=== PATIENT | male | born 1985 | race Caucasian/White ===

== ENCOUNTER 2025-07-23 05:45 | Day surgery (SDC) | payer SELFPAY, OTHER ==
--- NOTE | 2025-07-02 10:19 | HP.PCM_ITS ---
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 He reports has been there for several years. He is easily able to reduce it. He denies nausea or vomiting or fevers or chills or abdominal pain. ROS General General: No weight change, appetite, fatigue, colon cancer, breast cancer or weakness HEENT HEENT: No difficulty swallowing, eye injury, eye surgery, swollen glands or hoarseness Endo Endocrine: No thyroid disease, diabetes mellitus, thyroid cancer, Hair loss, heat intolerance or cold intolerance Skin Skin: No rash or changing moles Breast Breast: No left breast lump, right breast lump, nipple discharge, breast pain, abnormal mammogram, abnormal US or breast enlargement Musc Musculoskeletal: No back problems, arthritis, rheumatoid arthritis, gout or joint pain Cardio Cardiovascular: No murmur, pacemaker, heart disease, atrial fibrillation, high blood pressure, heart attack, heart stent, palpitations, shortness of breath with exertion or chest pain Psych Psychiatric: No depression, anxiety or hearing voices Resp Respiratory: No shortness of breath, No sleep apnea, No cough, No COPD, No asthma, No emphysema and No wheezing Gastro Gastrointestinal: No abdominal pain, No nausea or vomiting, No diarrhea, No constipation, No blood in stool, No acid reflux, No hemorrhoids, No ulcers, No gallbladder problem and No black,tarry stools Nickolas Hematologic: No blood thinners, No blood disorders, No bleeding, No anemia and No blood clots Neuro Neurologic: No system reviewed and no additional complaints, except as documented, No as per HPI, No abnormal gait, No abnormal hearing, No abnormal mo vements, No abnormal speech, No behavioral changes, No burning sensations, No confusion, No convulsions, No disequilibrium, No dizziness, No localized weakness, No frequent falls, No headache(s), No lack of coordination, No loss of vision, No memory loss, No numbness, No other visual disturbances, No radicular pain, No restless legs, No sensory deficit, No syncope, No tingling, No tremor(s), No weakness and No other Exam Const General: cooperative Orientation: alert and oriented x3 HENMT Head: normal to inspection Neck Neck: normal visual inspection and full ROM Chest Chest palpation & inspection: normal inspection of the chest Resp Effort & Inspection: normal respiratory effort Auscultation: clear to auscultation bilaterally Cardio Rate: regular rate Rhythm: regular rhythm GI Inspection: non-distended Palpation: soft, hernia indirect inguinal on the left and nontender Skin General: no rashes or lesions noted Neuro General: patient alert and patient oriented x3 Extrem General: full ROM Psych Appearance: grossly normal Mental Status: mental status grossly normal Assessment and Plan Assessment and Plan (1) Left inguinal hernia: Status: Acute Plan: The patient has a small reducible left inguinal hernia. I discussed robotic assisted laparoscopic left inguinal hernia repair with mesh. I discussed the surgery as well as the risks including but not limited to bleeding, infection, injury to other organ such as the bowel, bladder, ureter, blood supply to the testicle, nerve injury. Patient understands the risks and I did discuss in detail mesh placement. Dany Reeder MD Pager: [facility] [address] [place] [address], [address] [place] [address] Office: I have examined the patient and the H&P has been reviewed. There are no clinical changes since date of exam.
[2025-07-02 10:21] VITALS: BP 131/88; PULSE 93; RESP 16; TEMP 37.3; O2SAT 16; BMI 22.1
[2025-07-02] MEDS: Lactated Ringers 1,000 ML 15 ML IV (10:27)
--- NOTE | 2025-07-02 10:49 | PRE.ANES_ITS ---
ASA Classification* ASA Classification ASA Classification: 2 (GERD) Assessment & Plan Anesthesia* Anesthesia Assessment Anesthesia Assessment: Discussed sedation and/or anesthesia options, risks, benefits, and alternatives with patient/parents/legal guardian/POA. Questions invited. The patient/parents/legal guardian/POA seems to understand and agrees to proceed with anesthesia plan. Reviewed the physical assessment, medical history, allergy history and patient home medications list prior to surgery/procedure/anesthetic and documented any changes. Performed airway and anesthesia risk assessments. 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 When Was Last Pacemaker Check QUESTION #4 FULL TEXT: You/Your Family Experience fever (hyperthermia) with Anesthesia Last Oral Intake Last Oral intake: Last Oral Intake NPO since 05:30 07/02/25 10:21 Meds taken in AM with sips of No 07/02/25 10:21 water? Meds patient instructed to take am of surgery PONV PONV - area plant manager: PONV - area plant manager Female No 06/21/25 10:23 HX of Motion Sickness No 06/21/25 10:23 HX of N/V After Surgery No 06/21/25 10:23 Non-Smoker Yes 06/21/25 10:23 Duration of Surgery greater Yes 06/21/25 10:23 than 60 minutes Number of Risk Factors 2 06/21/25 10:23 PONV Score Moderate Risk 06/21/25 10:23 Height & Weight Height & Weight: Anesthesia: Height & Weight Height 5 ft 7 in 07/02/25 10:21 Weight: 64.3 kg 07/02/25 10:21 Body Mass Index (BMI) 22.1 07/02/25 10:21 Respiratory Assessment Respiratory Assessment - area plant manager: Respiratory Tract Infection Hx - area plant manager Hx Respiratory Tract Infection No 06/21/25 10:23 STOP Sleep Apnea STOP Sleep Apnea - area plant manager: STOP Sleep Apnea - area plant manager Hx Hypertension No 06/21/25 10:23 Hx Sleep Apnea No 06/21/25 10:23 CPAP BIPAP Do you snore loudly (louder No 06/21/25 10:23 than talking or can be heard Do you often feel tired/ No 06/21/25 10:23 fatigued/ sleepy during daytime? Has anyone observed you stop No 06/21/25 10:23 breathing during sleep? STOP Results Negative 06/21/25 10:23 QUESTION #5 FULL TEXT : Do you snore loudly (louder than talking or can be heard through closed doors)? 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 Specify any problems Hx of Preganancy in last 3 N/A 06/21/25 10:23 Months Nurse Filling Out Transfusion [id number] 06/21/25 10:23 & Questions: Date: 06/21/25 06/21/25 10:23 Time: 10:06/21/25 10:23 Patient unable to answer at this time (ie. confused, unrespo /Reproduction History /Reproductive History - area plant manager: /Reproductive Hx- area plant manager Hx Now No 06/21/25 10:23 Gestational Age (in weeks): EDC: Hx Hx Para Hx Section SAB No 06/21/25 10:23 Does the father of the baby or his family experience fever w Father of the baby Malignant Hypertension history comment Active Medications Active Medications: Current Medications Generic Name Dose Route Start Last Admin Trade Name Freq PRN Reason Stop Dose Admin Lactated Ringer's 1,000 mls @ 15 mls/hr 07/02/25 09:45 07/02/25 10:27 IV 15 mls/hr .Q48H GALE Administration PFSH Medical History (Updated 06/21/25 @ 10:31 by Sergey Concepcion) Gastric reflux Non-smoker Left inguinal hernia Home Medications ?Medication ?Instructions ?Recorded ?Last Taken ?Type 4LIFE 1 dose PO DAILY 06/21/25 Unk nown History FIBER BLEND 1 dose PO DAILY 06/21/25 Unk nown History Allergy/AdvReac Type Severity Reaction Status Date / Time No Known Allergies Allergy Verified 06/21/25 10:21 Surgical History S/P tonsillectomy Social History (Updated 06/06/25 @ 15:11 by Nicolasa Prasad) Smoking Status: Never smoker alcohol intake: never Review of Systems (Anesthesia) ROS Narrative System reviewed and no additional complaints, except as documented. Physical Exam Const alert, oriented x3 and average body habitus Resp normal respiratory effort, normal air movement and clear to auscultation bilat erally Cardio regular rate, regular rhythm and no murmurs; Negative for diaphoretic
[2025-07-02 10:50] VITALS: BP 131/88; PULSE 93; RESP 16; TEMP 37.3; O2SAT 16
--- OUTSIDE RECORDS SUMMARY | 2025-07-02 11:01 | XMS RPT_ITS | CCD ---
Author Organization [facility] Care Team Providers Care Gastroenterology Manager Name Role Phone SYED SOLORZANO, JOHN Black Unavailable Dany Reeder Attending Unavailable Micky VOCATIONAL REHABILITATION COUNSELOR, Stacia Gaona Referring Unavailcy e Micky VOCATIONAL REHABILITATION COUNSELOR, Stacia Gaona Primary Care Unavailcy e Dany Reeder Attending Unavailable Micky VOCATIONAL REHABILITATION COUNSELOR, Stacia Gaona Primary Care Unavailabl e Problems Active Problems Problem Classification Problem Date Documented Da te Episodic/Chronic Abdominal hernia (1 source) Unilateral inguinal hernia, without obstruction or gangrene, not specified as recurrent; Translations: [Unilateral inguinal hernia, without obstruction or gangrene, not specified as recurrent] Onset: 06-19-2025 Episodic Past or Other Problems Problem Classification Problem Date Documented Da te Episodic/Chronic NEGATED: Highlighted row has been ruled out!Unclassified (1 source) No Problem Information Available Results Test Name Value Interpretation Reference Range [facility] Surgery Visit Reporton 06-06 Surgery Visit Report [facility] [address] [place] [address]. [address] [place] [address] OFFICE VISIT Date of Service: 06/06/25 MR#: [id number] Acct: [id number] Name: ALLYSSA MEDLEY Rep #: [id number] : 1985 Provider: Dr. 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 He reports has been there for several years. He is easily able to reduce it. He denies nausea or vomiting or fevers or chills or abdominal pain. ROS General General: No weight change, appetite, fatigue, colon cancer, breast cancer or weakness HEENT HEENT: No difficulty swallowing, eye injury, eye surgery, swollen glands or hoarseness Endo Endocrine: No thyroid disease, diabetes mellitus, thyroid cancer, Hair loss, heat intolerance or cold intolerance Skin Skin: No rash or changing moles Breast Breast: No left breast lump, right breast lump, nipple discharge, breast pain, abnormal mammogram, abnormal US or breast enlargement Musc Musculoskeletal: No back problems, arthritis, rheumatoid arthritis, gout or joint pain Cardio Cardiovascular: No murmur, pacemaker, heart disease, atrial fibrillation, high blood pressure, heart attack, heart stent, palpitations, shortness of breath with exertion or chest pain Psych Psychiatric: No depression, anxiety or hearing voices Resp Respiratory: No shortness of breath, No sleep apnea, No cough, No COPD, No asthma, No emphysema and No wheezing Gastro Gastrointestinal: No abdominal pain, No nausea or vomiting, No diarrhea, No constipation, No blood in stool, No acid reflux, No hemorrhoids, No ulcers, No gallbladder problem and No black,tarry stools Nickolas Hematologic: No blood thinners, No blood disorders, No bleeding, No anemia and No blood clots Neuro Neurologic: No system reviewed and no additional complaints, except as documented, No as per HPI, No abnormal gait, No abnormal hearing, No abnormal movements, No abnormal speech, No behavioral changes, No burning sensations, No confusion, No convulsions, No disequilibrium, No dizziness, No localized weakness, No frequent falls, No headache(s), No lack of coordination, No loss of vision, No memory loss, No numbness, No other visual disturbances, No radicular pain, No restless legs, No sensory deficit, No syncope, No tingling, No tremor(s), No weakness and No other Exam Const General: cooperative Orientation: alert and oriented x3 HENMT Head: normal to inspection Neck Neck: normal visual inspection and full ROM Chest Chest palpation inspection: normal inspection of the chest Resp Effort Inspection: normal respiratory effort Auscultation: clear to auscultation bilaterally Cardio Rate: regular rate Rhythm: regular rhythm GI Inspection: non-distended Palpation: soft, hernia indirect inguinal on the left and nontender Skin General: no rashes or lesions noted Neuro General: patient alert and patient oriented x3 Extrem General: full ROM Psych Appearance: grossly normal Mental Status: mental status grossly normal Assessment and Plan Assessment and Plan (1) Left inguinal hernia: Status: Acute Plan: The patient has a small reducible left inguinal hernia. I discussed robotic assisted laparoscopic left inguinal hernia repair with mesh. I discussed the surgery as well as the risks including but not limited to bleeding, infection, injury to other organ such as the bowel, bladder, ureter, blood supply to the testicle, nerve injury. Patient understands the risks and I did discuss in detail mesh placement. Dany Reeder MD Pager: [facility] [address] [place] [address], [address] [place] [phone] Office: Coding Level of Care Code Off vis,new,level 4 Diagnoses Left inguinal hernia K40.90 Clinical Quality Measures Falls Risk Screening/Assistive Devices (more content not included)... Normal [facility] Encounters Encounter Date Encounter Type Care Provider Facility Start: 07-02-2025 ambulatory Dany Ardon lity:[facility] Start: 06-06-2025 End: 06-06-2025 ambulatory Dany Reeder Facility:[facility] Payers Date Payer Category Payer Unknown 2025 Self-pay 2025 Unknown 1 Unknown [id number] Unknown [id number] Social History Date Type Detail Facility Male [facility]; [facility] Work Phone: Tobacco smoking consumption unknown [facility]; [facility] Work Phone: NEGATED: Highlighted row No Social History Information Available No Social History Information Available [facility]; [facility] Work Phone: Summary Purpose Family History No Family History Records Found Advance Directives No Advanced Directives Records Found Additional Source Comments (unrecognized sect ion and content) No Status Records Found INFORMATION SOURCE (unrecogn ized section and content) DATE CREATED AUTHOR 06/20/2025 [facility] FOR RECORDS PERTAINING TO PATIENTS WHO ARE OR HAVE BEEN ENROLLED IN A CHEMICAL DEPENDENCY/SUBSTANCEABUSE PROGRAM, SOME INFORMATION MAY BE OMITTED. This clinical summary was aggregated from multiple sources. Caution should be exercised in using it in the provision of clinical care. This summary normalizes information from multiple sources, and as a consequence, information in this document may materially change the coding, format and clinical context of patient data. In addition, data may be omitted in some cases. CLINICAL DECISIONS SHOULD BE BASED ON THE PRIMARY CLINICAL RECORDS. [employer] provides no warranty or guarantee of the accuracy or completeness of information in this document.
[2025-07-23] VITALS (11 sets, daily range): BP systolic 112–142; BP diastolic 79–88; PULSE 76–96; RESP 14–20; TEMP 36.6–37.4; O2SAT 93–100; BMI 22.1
--- OUTSIDE RECORDS SUMMARY | 2025-07-23 05:48 | XMS RPT_ITS | CCD ---
Author Organization [facility] Care Team Providers Care First Aid Trainer Name Role Phone SYED SOLORZANO, JOHN Black Unavailable Dany Reeder Attending Unavailable Micky EXECUTIVE CHEF ASSISTANT, Stacia Gaona Referring Unavailcy e Micky EXECUTIVE CHEF ASSISTANT, Stacia Gaona Primary Care Unavailcy e Dany Reeder Attending Unavailable Micky EXECUTIVE CHEF ASSISTANT, Stacia Gaona Primary Care Unavailabl e Problems [...] Results Test Name Value Interpretation Reference Range [facility] Surgery Visit Reporton 06-06 Surgery Visit Report [facility] [address] [place] [address]. [address] [place] [address] OFFICE VISIT Date of Service: 06/06/25 MR#: [id number] Acct: [id number] Name: ALLYSSA MEDLEY Rep #: [id number] : 1985 Provider: Dr. Dany grande MD Age/Sex: 40/M Location: [facility] Status: Signed Intake Vital Signs 06/06/25 15:11 Height 5 ft 7 in Weight: 147 lb BMI 23.0 BP 163/79 H Blood Pressure Location Lt brachial Position Sitting Respiration 16 Intake Visit Reasons: INGUINAL HERNIA Chief Complaint: left inguinal hernia Label Paster Required: No Is patient in pain?: No [...] detail mesh placement. Dany Reeder MD Pager: [facility] [address] [place] [address], [address] [place] [phone] Office: Coding Level of Care Code Off vis,new,level 4 Diagnoses Left inguinal hernia K40.90 Clinical Quality Measures Falls Risk Screening/Assistive Devices (more content not included)... Normal [facility] Encounters Encounter Date Encounter Type Care Provider Facility Start: 07-02-2025 ambulatory Dany Ardon lity:[facility] Start: 06-06-2025 End: 06-06-2025 ambulatory Dany Reeder [place] [place] Payers Date Payer Category Payer Unknown 2025 Self-pay 2025 Unknown 1 Unknown [id number] Unknown [id number] Social History Date Type Detail Facility Male [facility]; [facility] Work Phone: Tobacco smoking consumption unknown [facility]; [facility] Work Phone: NEGATED: Highlighted row No Social History Information Available No Social History Information Available [facility]; [facility] Work Phone: Summary Purpose Family History No Family History Records Found Advance Directives No Advanced Directives Records Found Additional Source Comments (unrecognized sect ion and content) No Status Records Found INFORMATION SOURCE (unrecogn ized section and content) DATE CREATED AUTHOR 06/20/2025 [facility] FOR RECORDS PERTAINING TO PATIENTS WHO [...] BE BASED ON THE PRIMARY CLINICAL RECORDS. [employer] provides no warranty or guarantee of the accuracy or completeness of information in this document.
--- NOTE | 2025-07-23 06:38 | PCM.HP.BLA ---
History and Physical Date of Admission: 07/23/25 History and Physical Date of Admission: 07/02/25 Intake Vital Signs 06/06/2515:11 Height 5 ft 7 in Weight: 147 lb BMI 23.0 BP 163/79 H Blood Pressure Location Lt brachial Position Sitting Respiration 16 Intake Visit Reasons: INGUINAL HERNIA Chief Complaint: left inguinal hernia Timber Sprinkler Required: No Is patient in pain?: No Allergies No Known Allergies Allergy (Unverified 06/06/25 15:12) Medications ?Medication ?Instructions ?Recorded ?Confirmed ?Type NK 06/06/25 06/06/25 History Have you fallen in the past year?: No PFSH Medical History (Updated 06/06/25 @ 15:11 by Nicolasa Prasad) Left inguinal hernia Surgical History (Updated 06/06/25 @ 15:11 by Nicolasa Prasad) S/P tonsillectomy Social History (Updated 06/06/25 @ 15:11 by Nicolasa Prasad) Smoking Status: Never smoker alcohol intake: never HPI HPI HPI: Patient is a 40-year-old male here with left inguinal hernia. He reports has been there for several years. He is easily able to reduce it. He denies nausea or vomiting or fevers or chills or abdominal pain. ROS General General: No weight change, appetite, fatigue, colon cancer, breast cancer or weakness HEENT HEENT: No difficulty swallowing, eye injury, eye surgery, swollen glands or hoarseness Endo Endocrine: No thyroid disease, diabetes mellitus, thyroid cancer, Hair loss, heat intolerance or cold intolerance Skin Skin: No rash or changing moles Breast Breast: No left breast lump, right breast lump, nipple discharge, breast pain, abnormal mammogram, abnormal US or breast enlargement Musc Musculoskeletal: No back problems, arthritis, rheumatoid arthritis, gout or joint pain Cardio Cardiovascular: No murmur, pacemaker, heart disease, atrial fibrillation, high blood pressure, heart attack, heart stent, palpitations, shortness of breath with exertion or chest pain Psych Psychiatric: No depression, anxiety or hearing voices Resp Respiratory: No shortness of breath, No sleep apnea, No cough, No COPD, No asthma, No emphysema and No wheezing Gastro Gastrointestinal: No abdominal pain, No nausea or vomiting, No diarrhea, No constipation, No blood in stool, No acid reflux, No hemorrhoids, No ulcers, No gallbladder problem and No black,tarry stools Nickolas Hematologic: No blood thinners, No blood disorders, No bleeding, No anemia and No blood clots Neuro Neurologic: No system reviewed and no additional complaints, except as documented, No as per HPI, No abnormal gait, No abnormal hearing, No abnormal movements, No abnormal speech, No behavioral changes, No burning sensations, No confusion, No convulsions, No disequilibrium, No dizziness, No localized weakness, No frequent falls, No headache(s), No lack of coordination, No loss of vision, No memory loss, No numbness, No other visual disturbances, No radicular pain, No restless legs, No sensory deficit, No syncope, No tingling, No tremor(s), No weakness and No other Exam Const General: cooperative Orientation: alert and oriented x3 HENMT Head: normal to inspection Neck Neck: normal visual inspection and full ROM Chest Chest palpation & inspection: normal inspection of the chest Resp Effort & Inspection: normal respiratory effort Auscultation: clear to auscultation bilaterally Cardio Rate: regular rate Rhythm: regular rhythm GI Inspection: non-distended Palpation: soft, hernia indirect inguinal on the left and nontender Skin General: no rashes or lesions noted Neuro General: patient alert and patient oriented x3 Extrem General: full ROM Psych Appearance: grossly normal Mental Status: mental status grossly normal Assessment and Plan Assessment and Plan (1) Left inguinal hernia: Status: Acute Plan: The patient has a small reducible left inguinal hernia. I discussed robotic assisted laparoscopic left inguinal hernia repair with mesh. I discussed the surgery as well as the risks including but not limited to bleeding, infection, injury to other organ such as the bowel, bladder, ureter, blood supply to the testicle, nerve injury. Patient understands the risks and I did discuss in detail mesh placement. Dany Reeder MD Pager: [facility] [address] [place] [address], [address] [place] [address] Office: I have seen and examined the patient and reviewed the H&P. There are no clinical changes. The patient was here a few weeks ago for surgery and it had to be rescheduled due to a conamination.
[2025-07-23] MEDS: Lactated Ringers 1,000 ML 15 ML IV (06:40)
--- NOTE | 2025-07-23 07:00 | PRE.ANES_ITS ---
ASA Classification* ASA Classification ASA Classification: 1 Assessment & Plan Anesthesia* Anesthesia Assessment Anesthesia Assessment: Discussed sedation and/or anesthesia options, risks, benefits, and alternatives with patient/parents/legal guardian/POA. Questions invited. The patient/parents/legal guardian/POA seems to understand and agrees to proceed with anesthesia plan. Reviewed the physical assessment, medical history, allergy history and patient home medications list prior to surgery/procedure/anesthetic and documented any changes. Performed airway and anesthesia risk assessments. 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 When Was Last Pacemaker Check QUESTION #4 FULL TEXT: You/Your Family Experience fever (hyperthermia) with Anesthesia Any additional information?: No Last Oral Intake Last Oral intake: Last Oral Intake NPO since 21:30 07/23/25 06:18 Meds taken in AM with sips of No 07/23/25 06:18 water? Meds patient instructed to take am of surgery Any additional information?: No PONV PONV - industrial gas production operator: PONV - industrial gas production operator Female No 06/21/25 10:23 HX of Motion Sickness No 06/21/25 10:23 HX of N/V After Surgery No 06/21/25 10:23 Non-Smoker Yes 06/21/25 10:23 Duration of Surgery greater Yes 06/21/25 10:23 than 60 minutes Number of Risk Factors 2 06/21/25 10:23 PONV Score Moderate Risk 06/21/25 10:23 Any additional information?: No Height & Weight Height & Weight: Anesthesia: Height & Weight Height 5 ft 7 in 07/23/25 06:18 Weight: 64.3 kg 07/23/25 06:18 Body Mass Index (BMI) 22.1 07/23/25 06:18 Respiratory Assessment Respiratory Assessment - industrial gas production operator: Respiratory Tract Infection Hx - industrial gas production operator Hx Respiratory Tract Infection No 06/21/25 10:23 Any additional information?: No STOP Sleep Apnea STOP Sleep Apnea - industrial gas production operator: STOP Sleep Apnea - industrial gas production operator Hx Hypertension No 06/21/25 10:23 Hx Sleep Apnea No 06/21/25 10:23 CPAP BIPAP Do you snore loudly (louder No 06/21/25 10:23 than talking or can be heard Do you often feel tired/ No 06/21/25 10:23 fatigued/ sleepy during daytime? Has anyone observed you stop No 06/21/25 10:23 breathing during sleep? STOP Results Negative 06/21/25 10:23 QUESTION #5 FULL TEXT : Do you snore loudly (louder than talking or can be heard through closed doors)? 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 Specify any problems Hx of Preganancy in last 3 N/A 06/21/25 10:23 Months Nurse Filling Out Transfusion [email or web address] 06/21/25 10:23 & Questions: Date: 06/21/25 06/21/25 10:23 Time: 10:28 06/21/25 10:23 Patient unable to answer at this time (ie. confused, unrespo Any additional information?: No /Reproduction History /Reproductive History - industrial gas production operator: /Reproductive Hx- industrial gas production operator Hx Now No 06/21/25 10:23 Gestational Age (in weeks): EDC: Hx Hx Para Hx Section SAB No 06/21/25 10:23 Does the father of the baby or his family experience fever w Father of the baby Malignant Hypertension history comment Any additional information?: No Active Medications Active Medications: Current Medications Generic Name Dose Route Start Last Admin Trade Name Freq PRN Reason Stop Dose Admin Cefazolin Sodium 2 gm/ Sodium 110 mls @ 200 mls/hr 07/23/25 07:00 Chloride IV 07/23/25 07:32 INTRAOP ONE Lactated Ringer's 1,000 mls @ 15 mls/hr 07/23/25 06:15 07/23/25 06:40 IV 15 mls/hr .Q48H GALE Administration PFSH Medical History Gastric reflux Non-smoker Left inguinal hernia Home Medications ?Medication ?Instructions ?Recorded ?Last Taken ?Type 4LIFE 1 dose PO DAILY 06/21/25 History FIBER BLEND 1 dose PO DAILY 06/21/25 History Allergy/AdvReac Type Severity Reaction Status Date / Time No Known Allergies Allergy Verified 07/23/25 06:17 Surgical History S/P tonsillectomy Social History Smoking Status: Never smoker alcohol intake: never Review of Systems (Anesthesia) ROS Narrative System reviewed and no additional complaints, except as documented. Physical Exam Const alert and oriented x3 Orientation / Consciousness: awake HEENT dentition normal Neck full ROM General: normal visual inspection and trachea midline Resp normal respiratory effort, normal air movement and clear to auscultation bilaterally Auscultation: clear to auscultation bilaterally Cardio regular rate, regular rhythm and no murmurs Back/Spine normal ROM Neuro oriented x3 and moves all extremities
[2025-07-23] MEDS: fentaNYL 100 MCG/2 ML Ampul IV (07:29)
[2025-07-23] MEDS: Midazolam 2 MG/2 ML Syringe IV (07:31)
[2025-07-23] MEDS: Lidocaine 1% (5 ml sdv) 5 ML Vial IV (07:32)
[2025-07-23] MEDS: Cefazolin 1 GM/5 ML Vial 2 GM IV (07:35)
--- NOTE | 2025-07-23 08:26 | OP.PCM_ITS ---
Operative Report (Standard) Operative Information Date of Procedure: 07/23/25 Pre-Operative Diagnosis: Left inguinal hernia Post-Operative Diagnosis: Left inguinal hernia Surgery/Procedure Performed: Robotic assisted laparoscopic left inguinal hernia repair with mesh measuring machine tender: Yes Supervisor Tubing: Armand Tang Tasks completed by bilingual sales assistant: Opening & closing Type of Anesthesia: General/Regional RN Documented Start/Stop Times: Operation Date: 07/23/25 07:30 Case Time Into Pre-Op 07/23/25 06:08 Out of Pre-Op 07/23/25 07:22 Anesthesia Start 07/23/25 07:26 Into Room 07/23/25 07:26 Procedure Start 07/23/25 07:43 Procedure End 07/23/25 08: Procedure Start Time: :43 Procedure Stop Time: : Select all DRAINS/GRAFTS/IMPLANTS that apply: Implanted device Implanted device details: ProGrip mesh in the left groin Estimated Blood Loss: 10 Specimen collected: No Description of surgery: Patient was brought back to the operating room and general anesthesia was induced. The abdomen was prepped and draped in usual sterile fashion. A midline incision was made superior to the umbilicus and deepened to the fascia which was elevated and incised. A port was placed into the abdomen. The abdomen is insufflated to 15 mmHg. The camera was placed into the abdomen and it was inspected for injuries from entry and there were none. The patient was placed in steep Trendelenburg position. Under direct visualization an 8 mm port was placed on the right lateral sidewall as well as the left lateral abdominal sidewall. Next the robot was docked. Next the peritoneum was incised in the left lower quadrant and dissection was carried inferiorly until the hernia sac was encountered. The hernia sac was dissected free from its encircling attachments and reduced. Dissection was carried posteriorly. Next a piece of ProGrip mesh was placed in the left lower quadrant and placed over the hernia defect and unfolded. It completely covered the defect with good overlap. Next the peritoneum was reapproximated using a running 3 oh V-Loc suture completely covering the mesh. The abdomen was allowed to desufflate and the ports were removed. The midline fascia was closed with an 0 Vicryl suture. The skin incisions were injected with local anesthetic and closed with interrupted 4-0 Monocryl sutures. Steri-Strips and bandages were applied. Scrotum was checked at the end of the case and contained both testicles. Patient was awoken and taken to PACU in stable condition and tolerated the procedure well. Surgical Findings: Indirect left inguinal hernia Complications Complications: No Admit VTE Documentation VTE Mechan Device Prophylaxis: SCD's
--- NOTE | 2025-07-23 08:29 | DCINST_ITS ---
Discharge Instructions Procedure Hernia Diet Discharge Diet: Light diet - advance as tolerated Activity Discharge Activity: May Not Drive (for 2-3 days or while taking narcotic pain meds.) and May Shower (with the bandage in place 1-2 days after surgery.) Lifting Restrictions: 20 pounds for 4 weeks. Additional Activity Instructions:: Climbing stairs is fine, walking is encouraged. Sitting in bed may be uncomfortable. Sitting up using your lateral muscles (sitting up sideways) is usually more comfortable. Do not drive, work heavy equipment of sign legal documents for 24 hours. If your hernia repair was an inguinal repair, you may have scrotal swelling, an ice pack and/or athletic support can provide more comfort. Pain medications may cause nausea, you should typically eat light foods as you take your pain medications. Pain medications may also cause constipation. If you have difficulty with this, discuss with your doctor. Alternate ibuprofen and Tylenol for pain control, oxycodone for breakthrough pain. Add MiraLAX for any constipation Dressing / Incision Call your doctor if your incision/area has: Continuous Slow Oozing, Sudden I ncreased Bleeding, Increased Pain/ Swelling, Increased Redness and Foul Smelling Discharge Call your doctor if you observe: Fever of 101 or Higher Suture Line Care: Avoid Pulling/Pushing and Avoid Pinching/Bending Remove Dressing in: 2 days (Remove clear bandages in 2 days, remove Steri-Strips in 7 to 10 days.) Follow Up Care Please Follow Up With: Dany Reeder MD When: Please call to schedule 2 week follow up appointment. [phone] Test Results: Test results from this visit will be discussed in further detail at your follow- up appointment, if applicable. Discharge Plan Admission Attending Provider: Dany Reeder Primary Care Provider: Stacia Weeks NP Instructions Print Language: Marshallese Discharge Orders/Prescriptions Prescriptions: New oxycodone 5 mg Tablet 5 - 10 mg PO Q4H PRN PRN (Reason: Pain Score 4-10) 5 Days Qty: 10 0RF No Action FIBER BLEND 1 dose PO DAILY 4LIFE 1 dose PO DAILY Patient Comments: VITAMIN BLEND UNSURE OF WHAT IS IN IT Referrals / Follow Up: Stacia Weeks NP, [facility] [Primary Care Provider, Medical] Disposition Disposition (needs filled in before D/C Order can be placed): Home, Self Care
--- NOTE | 2025-07-23 08:39 | PCM.POST.ANE ---
Anesthesia: Postop Eval I Current Vital Signs Temperature: 97.8 F Pulse Rate: 84 Blood Pressure: 119/82 Respiratory Rate: 20 Pulse Ox: 96 Oxygen Delivery Method: Room Air Assessment Airway patent: Yes Spontaneous unlabored respirations: Yes Mental status: Asleep nausea: No Vomiting: No Anesthesia Complication: No Fluid Hydration Crystalloid volume administer (ml): 700 Total IV fluid infused: 700 Progress Note Anesthesia document: Postop Eval 1 completed: Yes
--- NOTE | 2025-07-23 11:17 | POSTOPAN2_ITS ---
Anesthesia Postop Eval I Sum Postop Eval Completion status Anesthesia document: Postop Eval 1 completed: Yes Anesthesia Postop Eval I Summary Anesthesia Postop Eval I Summary: Anesthesia Postop Eval I: Assessment Summary Airway patent Yes 07/23/25 08:40 INSTALLER [email or web address] Spontaneous unlabored Yes 07/23/25 08:40 INSTALLER [email or web address] respirations Mental status Asleep 07/23/25 08:40 INSTALLER [email or web address] nausea No 07/23/25 08:40 INSTALLER [email or web address] Vomiting No 07/23/25 08:40 INSTALLER [email or web address] Anesthesia Postop Eval I: Fluid Summary Crystalloid volume administer 700 07/23/25 08:40 INSTALLER [email or web address] (ml) Colloids volume administered ( ml) Blood Product volume administered (ml) Total IV fluid infused 700 07/23/25 08:40 INSTALLER [email or web address] Anesthesia Postop Eval I: Summary Notes Anesthesia Complication No 07/23/25 08:40 INSTALLER [email or web address] Anesthesia Complication Comment: Post-operative progress note Anesthesia: Postop Eval II Evaluation Mental status: Awake and Calm Pain Level: 0 nausea: No Vomiting: No Complications Anesthesia Complication: No
--- NOTE | 2025-07-23 11:17 | PCM.POSTANE2 ---
Anesthesia Postop Eval I Sum Postop Eval Completion status Anesthesia document: Postop Eval 1 completed: Yes Anesthesia Postop Eval I Summary Anesthesia Postop Eval I Summary: Anesthesia Postop Eval I: Assessment Summary Airway patent Yes 07/23/25 08:40 [email or web address] Spontaneous unlabored Yes 07/23/25 08:40 [email or web address] respirations Mental status Asleep 07/23/25 08:40 [email or web address] nausea No 07/23/25 08:40 [email or web address] Vomiting No 07/23/25 08:40 [email or web address] Anesthesia Postop Eval I: Fluid Summary Crystalloid volume administer 700 07/23/25 08:40 [email or web address] (ml) Colloids volume administered ( ml) Blood Product volume administered (ml) Total IV fluid infused 700 07/23/25 08:40 [email or web address] Anesthesia Postop Eval I: Summary Notes Anesthesia Complication No 07/23/25 08:40 [email or web address] Anesthesia Complication Comment: Post-operative progress note Anesthesia: Postop Eval II Evaluation Mental status: Awake and Calm Pain Level: 0 nausea: No Vomiting: No Complications Anesthesia Complication: No
--- NOTE | 2025-07-23 14:15 | SUR.PHASEII ---
pt straight cathed for 500ml yellow urine
--- NOTE | 2025-07-23 15:04 | POSTOPAN2_ITS ---
Anesthesia Postop Eval I Sum Postop Eval Completion status Anesthesia document: Postop Eval 1 completed: Yes Anesthesia Postop Eval I Summary Anesthesia Postop Eval I Summary: Anesthesia Postop Eval I: Assessment Summary Airway patent Yes 07/23/25 08:40 ED [email or web address] Spontaneous unlabored Yes 07/23/25 08:40 ED EDUCATIONAL [email or web address] respirations Mental status Awake,Calm 07/23/25 11:17 ED [email or web address] [email or web address] nausea No 07/23/25 11:17 ED EDUCATIONAL [email or web address] Vomiting No 07/23/25 11:17 ED [email or web address] Anesthesia Postop Eval I: Fluid Summary Crystalloid volume administer 700 07/23/25 08:40 ED EDUCATIONAL [email or web address] (ml) Colloids volume administered ( ml) Blood Product volume administered (ml) Total IV fluid infused 700 07/23/25 08:40 ED [email or web address] Anesthesia Postop Eval I: Summary Notes Anesthesia Complication No 07/23/25 11:17 ED [email or web address] [email or web address] Anesthesia Complication Comment: Post-operative progress note Anesthesia: Postop Eval II Evaluation Mental status: Awake and Calm Pain Level: 0 nausea: No Vomiting: No Complications Anesthesia Complication: No
--- NOTE | 2025-07-23 15:04 | PCM.POSTANE2 ---
Anesthesia Postop Eval I Sum Postop Eval Completion status Anesthesia document: Postop Eval 1 completed: Yes Anesthesia Postop Eval I Summary Anesthesia Postop Eval I Summary: Anesthesia Postop Eval I: Assessment Summary Airway patent Yes 07/23/25 08:40 DOMESTIC [email or web address] Spontaneous unlabored Yes 07/23/25 08:40 DOMESTIC [email or web address] respirations Mental status Awake,Calm 07/23/25 11:17 DOMESTIC [email or web address] nausea No 07/23/25 11:17 DOMESTIC [email or web address] Vomiting No 07/23/25 11:17 DOMESTIC [email or web address] Anesthesia Postop Eval I: Fluid Summary Crystalloid volume administer 700 07/23/25 08:40 DOMESTIC [email or web address] (ml) Colloids volume administered ( ml) Blood Product volume administered (ml) Total IV fluid infused 700 07/23/25 08:40 DOMESTIC [email or web address] Anesthesia Postop Eval I: Summary Notes Anesthesia Complication No 07/23/25 11:17 DOMESTIC [email or web address] Anesthesia Complication Comment: Post-operative progress note Anesthesia: Postop Eval II Evaluation Mental status: Awake and Calm Pain Level: 0 nausea: No Vomiting: No Complications Anesthesia Complication: No
== END 2025-07-23 14:15 | disposition home or self-care (01) ==
LOC: SDC 05:46 → AC 05:46
PROVIDERS: PCP Nurse Practitioner Family; Referring Provider Surgery; Visit Provider Surgery
PROC: 0YQ64ZZ Repair Left Inguinal Region, Percutaneous Endoscopic Approach (ICD-10-PCS; CPT 49650; principal; 2025-07-23 07:10)
DX: K40.90 Unilateral inguinal hernia, without obstruction or gangrene, not specified as recurrent (principal)
CPT/HCPCS: 49650; S2900; 00840; C1781; J2405